=== PATIENT | female | born 1965 | race Caucasian/White ===

== ENCOUNTER → 2016-12-19 | Outpatient (CLI) | payer BC ==
[~2016-12-19] MED LIST: FEXO5TAB2 PO; GLIM1TAB2 PO; LEVO1TAB PO; LOSA100T26 PO; METF1000 PO; SIMV10TA2 PO
[2016-12-19 11:08] LABS: HEMATOCRIT 43.2 % (37-47); MEAN CELL VOLUME 86.1 fL (80-100); MEAN CORPUSCULAR HEMOGLOBIN 28.3 pg (25-34); MEAN CORPUSCULAR HGB CONC 32.9 g/dl (32-36); MEAN PLATELET VOLUME 10.2 fL (7.4-10.4); PLATELET COUNT 246 K/uL (130-400); RED BLOOD COUNT 5.02 M/uL (4.2-5.4); WHITE BLOOD COUNT 7.63 K/uL (4.8-10.8)
[2016-12-19 11:28] LABS: ESTIMATED AVERAGE GLUCOSE 166 mg/dl; HA1C FLAG Normal (Normal)
[2016-12-19 11:30] LABS: BLOOD UREA NITROGEN 12 mg/dl (7-18); BUN/CREATININE RATIO 15.7 (10-20); CALCIUM 9.2 mg/dl (8.5-10.1); CARBON DIOXIDE 28 mmol/L (21-32); CHLORIDE 103 mmol/L (98-107); CREATININE 0.76 mg/dl (0.60-1.20); GLUCOSE 165 mg/dl (70-99); SODIUM 139 mmol/L (136-145)
[2016-12-19 11:43] LABS: URINE PROTIEN/CREAT RATIO 0.1 (0-0.2); URINE TOTAL PROTEIN 27.7 mg/dl (0-11.9)
== END | disposition home or self-care (01) ==
LOC: C.LABBC 08:30
PROVIDERS: ATTEND Internal Medicine Geriatric Medicine
DX: E03.9 Hypothyroidism, unspecified (principal); E11.9 Type 2 diabetes mellitus without complications; E78.5 Hyperlipidemia, unspecified; G47.30 Sleep apnea, unspecified

== ENCOUNTER → 2017-04-11 | Outpatient (CLI) | payer BC ==
[~2017-04-11] MED LIST changes: -LOSA100T26 PO; +LOSA100T33 PO
--- NOTE | 2017-04-14 13:13 | MAMMOGRAPHY REPORT ---
BILATERAL DIGITAL SCREENING MAMMOGRAM TOMOSYNTHESIS WITH CAD: 04/11/2017 CLINICAL HISTORY: Routine screening. TECHNIQUE: Breast tomosynthesis in addition to standard 2D mammography was performed. Current study was also evaluated with a Computer Aided Detection (CAD) system. COMPARISON: Comparison is made to exams dated: 04/04/2016 mammogram, 03/31/2015 mammogram, 03/29/2014 ma mmogram, 12/31/2012 mammogram, 07/27/2012 mammogram, and 01/02/2012 mammogram - [facility]. BREAST COMPOSITION: There are scattered areas of fibroglandular density in both breasts. FINDINGS: No suspicious masses, calcifications, or areas of architectural distortion are noted in ei ther breast. There has been no significant interval change compared to prior exams. There are stable postsurgical changes from bilateral reduction mammoplasty. Bilateral asymmetries and scattered bila teral benign-appearing calcifications are stable. IMPRESSION: ACR BI-RADS CATEGORY 2: BENIGN There is no mammographic evidence of malignancy. A 1 year screening mammogram is recommended. The pa tient will receive written notification of the results. Approximately 10% of breast cancers are not detected with mammography. A negative mammographic report should not delay biopsy if a clinically suggestive mass is present. Nikki Carlisle M.D. ah/:04/11/2017 16:24:57 Outsole Handler: Nelida THAKUR)(M), [facility] letter sent: Normal 1/2 BI-RADS Code: ACR BI-RADS Category 2: Benign
== END | disposition home or self-care (01) ==
LOC: C.MAMM 08:00
PROVIDERS: ATTEND Internal Medicine Geriatric Medicine
DX: Z12.31 Encounter for screening mammogram for malignant neoplasm of breast (principal)

== ENCOUNTER → 2017-06-26 | Outpatient (CLI) | payer BC ==
[~2017-06-26] MED LIST changes: +LOSA100T26 PO; -LOSA100T33 PO
[2017-06-26 11:29] LABS: BASO % 0.3 %; BASO ABS # 0.02 K/uL (0-0.2); COMPLETE YES; EOS % 3.4 %; HEMATOCRIT 42.9 % (37-47); IG% 0.3 %; LYMPH ABS # 1.41 K/uL (1.2-3.4); MEAN CELL VOLUME 86.5 fL (80-100); MEAN CORPUSCULAR HEMOGLOBIN 28.4 pg (25-34); MEAN CORPUSCULAR HGB CONC 32.9 g/dl (32-36); MEAN PLATELET VOLUME 10.4 fL (7.4-10.4); MONO % 7.4 %; NEUT % 69.6 %; PLATELET COUNT 255 K/uL (130-400); RED BLOOD COUNT 4.96 M/uL (4.2-5.4); WHITE BLOOD COUNT 7.41 K/uL (4.8-10.8)
[2017-06-26 11:39] LABS: BLOOD UREA NITROGEN 14 mg/dl (7-18); BUN/CREATININE RATIO 18.6 (10-20); CALCIUM 9.2 mg/dl (8.5-10.1); CARBON DIOXIDE 29 mmol/L (21-32); CHLORIDE 106 mmol/L (98-107); CREATININE 0.77 mg/dl (0.60-1.20); GLUCOSE 138 mg/dl (70-99); POTASSIUM 4.1 mmol/L (3.5-5.1); SODIUM 138 mmol/L (136-145)
[2017-06-26 11:49] LABS: CHOLESTEROL 149 mg/dl (0-200); CHOLESTEROL/HDL RATIO 2.8; HDL CHOLESTEROL 54 mg/dl; LDL CHOLESTEROL CALCULATED 77 mg/dl; TRIGLYCERIDES 92 mg/dl (0-150); VERY LOW DENSITY LIPOPROT CALC 18 mg/dl
[2017-06-26 12:03] LABS: ESTIMATED AVERAGE GLUCOSE 157 mg/dl; HA1C FLAG Normal (Normal)
== END | disposition home or self-care (01) ==
LOC: C.LABBC 07:30
PROVIDERS: ATTEND Internal Medicine Geriatric Medicine
DX: E03.9 Hypothyroidism, unspecified (principal); E11.9 Type 2 diabetes mellitus without complications; E78.5 Hyperlipidemia, unspecified; I10 Essential (primary) hypertension; G47.30 Sleep apnea, unspecified

== ENCOUNTER → 2018-01-09 | Outpatient (CLI) | payer OTHER ==
[~2018-01-09] MED LIST changes: -LOSA100T26 PO; +LOSA100T33 PO
[2018-01-09 10:58] LABS: BASO % 0.2 %; BASO ABS # 0.02 K/uL (0-0.2); EOS % 2.6 %; EOS ABS # 0.22 K/uL (0-0.5); HEMATOCRIT 44.1 % (37-47); HEMOGLOBIN 14.1 g/dL (12.0-16.0); IG# 0.03 K/uL (0.00-0.02); LYMPH % 16.7 %; LYMPH ABS # 1.44 K/uL (1.2-3.4); MEAN CELL VOLUME 85.8 fL (80-100); MEAN CORPUSCULAR HEMOGLOBIN 27.4 pg (25-34); MEAN PLATELET VOLUME 10.6 fL (7.4-10.4); MONO % 8.5 %; MONO ABS # 0.73 K/uL (0.11-0.59); NEUT % 71.7 %; NEUT ABS # 6.18 K/uL (1.4-6.5); PLATELET COUNT 241 K/uL (130-400); RED CELL DISTRIBUTION WIDTH CV 14.6 % (11.5-14.5); RED CELL DISTRIBUTION WIDTH SD 45.8 fL (36.4-46.3); WHITE BLOOD COUNT 8.62 K/uL (4.8-10.8)
[2018-01-09 11:23] LABS: ALBUMIN 3.8 gm/dl (3.4-5.0); ALT/SGPT 26 U/L (12-78); AST/SGOT 11 U/L (15-37); BLOOD UREA NITROGEN 12 mg/dl (7-18); CALCIUM 9.2 mg/dl (8.5-10.1); CARBON DIOXIDE 29 mmol/L (21-32); GLUCOSE 149 mg/dl (70-99); POTASSIUM 3.1 mmol/L (3.5-5.1); SODIUM 133 mmol/L (136-145)
[2018-01-09 11:33] LABS: ALKALINE PHOSPHATASE 129 U/L (45-117); CHOLESTEROL 163 mg/dl (0-200); LDL CHOLESTEROL CALCULATED 81 mg/dl; TOTAL PROTEIN 7.6 gm/dl (6.4-8.2)
[2018-01-09 11:49] LABS: HEMOGLOBIN A1C 7.4 % (4.5-5.6)
== END | disposition home or self-care (01) ==
LOC: C.LABBC 08:14
PROVIDERS: ATTEND Internal Medicine Geriatric Medicine
DX: E11.9 Type 2 diabetes mellitus without complications (principal)

== ENCOUNTER 2021-04-11 08:17 | Observation (INO) ==
--- NOTE | 2021-03-08 13:10 | PAT Medication Instructions ---
Medication Instructions Date of Service March 08, 2021 Home Medications Medication Instructions Recorded simvastatin 20 mg tablet 20 mg PO DAILY #90 tab 05/24/20 telmisartan 80 mg tablet 80 mg PO DAILY #90 tab 06/05/20 glimepiride 2 mg tablet 2 mg PO QAM #90 tab 06/06/20 metformin 500 mg tablet,extended 2,000 mg PO DAILY #360 tab 06/06/20 release 24 hr spironolactone 25 mg tablet 25 mg PO QAM #90 tab 06/06/20 zinc 50 mg tablet 50 mg PO DAILY #30 tab 07/13/20 empagliflozin 25 mg tablet 25 mg PO DAILY #90 tab 11/30/20 blood sugar diagnostic #100 ea 12/05/20 blood-glucose meter #1 ea 12/05/20 lancets 30 gauge #100 ea 12/05/20 levothyroxine 175 mcg tablet 175 mcg PO DAILY #90 tab 02/12/21 miscellaneous medical supply 1 ea .ROUTE .nightly #1 ea 02/22/21 simvastatin 20 mg tablet 20 mg PO DAILY telmisartan 80 mg tablet 80 mg PO DAILY glimepiride 2 mg tablet 2 mg PO QAM spironolactone 25 mg tablet PO QAM metformin 500 mg tablet,extended release 24 hr 2,000 mg PO DAILY zinc 50 mg tablet 50 mg PO DAILY empagliflozin 25 mg tablet 25 mg PO DAILY levothyroxine 175 mcg tablet 175 mcg PO DAILY diclofenac sodium 75 mg PO HS Continue as directed simvastatin 20 mg tablet 20 mg PO DAILY ASK your surgeon for instructions diclofenac sodium 75 mg PO HS DO NOT take the morning of surgery telmisartan 80 mg tablet 80 mg PO DAILY glimepiride 2 mg tablet 2 mg PO QAM metformin 500 mg tablet,extended release 24 hr 2,000 mg PO DAILY zinc 50 mg tablet 50 mg PO DAILY empagliflozin 25 mg tablet 25 mg PO DAILY spironolactone 25 mg tablet PO QAM Take morning of surgery With a small sip of water, OTHERWISE NOTHING TO EAT OR DRINK AFTER MIDNIGHT: levothyroxine 175 mcg tablet 175 mcg PO DAILY Other Notes If you have any questions please call us at [phone] or [phone] or [phone] or [phone]
--- NOTE | 2021-03-12 09:27 | Anesthesiology Consultation ---
Date of Service March 12, 2021 Assessment & Plan (1) Encounter for pre-operative examination: - COVID screening: Per assessment on 03/12: Travel screen negative, no known COVID-19 positive contacts or current COVID-19 related symptoms. Patient fully vaccinated. Surgeon arranging preop COVID testing. Awaiting results. - Check BSG AM DOS - PCP note (02/22/21): Reviewed 02/22 hgba1c of 8.4% > "notify pt that her A1c is 8.4%. this is a lot better [previously 9.1% on 11/2020 labs], but we do like it to be below 8% for surgery. my hunch is that with her exercise, better diet, and weight loss, her average blood sugar right now would be consistent with <8%, but we won't know until we retest A1c. If her knee surgery can wait another 3 months we can repeat her test (and obviously, keep up her good work!) if she feels she needs to do the surgery now, I think it's ok, but is a bit riskier (poor healing, postop infections, etc)." PCP aware that patient does not wish to wait 3 months for rechecking of hgba1c and wishes to proceed with knee surgery in near future. Increased diet/exercise recommendations given. Surgeon's office made aware of the above. Chart Review Chart Review: Acceptable Risk for Surgery and Patient seen in Pre Admission Testing Teaching & Discussion Pre-Anesthesia Teaching/Discussion Notes: Instructed NPO after midnight before surgery,except medications with 15 cc of water. Medication instructions provided according to the PAT guidelines. History Surgery Operation Date: 04/11/21 09:05 Proposed Procedures p Right Total Knee Arthroplasty - Jonathan Mejia MD Height/Weight Height: 5 ft 4 in Weight: 127.6 kg Allergies Allergy/AdvReac Type Severity Reaction Status Date / Time Bactrim Allergy Intermediate RASH Verified 08/09/14 13:20 erythromycin base Allergy Intermediate Rash Verified 03/12/21 09:26 sulfamethoxazole Allergy Intermediate Rash Verified 03/12/21 09:26 trimethoprim Allergy Intermediate Rash Verified 03/12/21 09:26 latex Allergy Mild Skin Verified 03/12/21 09:26 irritation lisinopril Allergy Unknown Unknown Verified 03/12/21 09:26 Medications Home Medications Medication Instructions Recorded Confirmed Last Taken simvastatin 20 mg tablet 20 mg PO DAILY #90 tab 05/24/20 03/05/21 Unknown telmisartan 80 mg tablet 80 mg PO DAILY #90 tab 06/05/20 03/05/21 Unknown glimepiride 2 mg tablet 2 mg PO QAM #90 tab 06/06/20 03/05/21 Unknown metformin 500 mg tablet,extended 2,000 mg PO DAILY #360 tab 06/06/20 03/05/21 Unknown release 24 hr spironolactone 25 mg tablet 25 mg PO QAM #90 tab 06/06/20 03/05/21 Unknown zinc 50 mg tablet 50 mg PO DAILY #30 tab 07/13/20 03/05/21 Unknown empagliflozin 25 mg tablet 25 mg PO DAILY #90 tab 11/30/20 03/05/21 Unknown blood sugar diagnostic #100 ea 12/05/20 02/22/21 Unknown blood-glucose meter #1 ea 12/05/20 02/22/21 Unknown lancets 30 gauge #100 ea 12/05/20 02/22/21 Unknown levothyroxine 175 mcg tablet 175 mcg PO DAILY #90 tab 02/12/21 03/05/21 Unknown miscellaneous medical supply 1 ea .ROUTE .nightly #1 ea 02/22/21 02/22/21 Unknown diclofenac sodium 75 mg PO HS 03/05/21 03/05/21 Unknown Past Medical History Medical History Diabetes mellitus, type II NIDDM GERD (gastroesophageal reflux disease) controlled Hyperlipidemia Hypertension Hypothyroidism Obstructive sleep apnea CPAP Osteoarthritis Exercise / Class Metabolic Activity III < 4 Walking/Shop/Light housework (Does one flight of stairs once/week (when doing laundry in basement) > no chest pain, mild SOB) Past Family History Family History Father Cholesteatoma Diabetes Mother Hypertension Breast cancer Grandfather (Paternal) Myocardial infarction Denies family history of Ovarian cancer Prostate cancer Colorectal cancer Past Surgical History Surgical History History of colonoscopy History of endometrial ablation S/P excision of ganglion cyst Right wrist Status post breast reduction [place] teeth removed Past Anesthesia History No Hx of Anesthesia Complications and No Family Hx of Anesthesia Complications (except mother (post-op nausea)) History of PONV No Hx of PONV and No Hx of Motion Sickness Social History Smoking Status: Never smoker Do You Dip or Chew Tobacco: No Hx Alcohol Use: No Hx Substance Use: No Review of Systems + Chronic post nasal drip (allergy related) when laying flat- no recent changes. Patient denies chest pain, shortness of breath, fever, chills, cough, wheezing, palpitations. Physical Exam Vital Signs VITALS BP 118/74 P 72 TEMP 98.0 SP02 97%RA RESP 16 PHYSICAL Full cervical extension range of motion. Full TMJ range of motion. TMD 4 finger breaths (difficult to palpate) Mallampati Score 3 Dentition: intact Lungs: clear throughout to auscultation Cardiac: regular rate and rhythm, no murmurs noted Spine: normal Carotid arteries: negative bruit Extremities: non-pitting lower extremity edema Short, thick neck Testing Laboratory Results 03/12/21 09:41 03/12/21 09:41 PT 9.8 Seconds (9.0-12.0) 03/12/21 09:41 INR 1.0 (0.9-1.1) 03/12/21 09:41 APTT 26.9 Seconds (21.0-31.0) 03/12/21 09:41 Blood Type A Positive 03/12/21 09:41 Antibody Screen NEGATIVE 03/12/21 09:41 Electrocardiogram Date: 06/05/20 SR with 75bpm. "Normal ECG." Chest X-Ray Date: 07/05/20 FINDINGS: Cardiac silhouette is enlarged. No pneumothorax, pleural effusion or overt pulmonary edema. Subsegmental lingular opacities. Degenerative changes of the shoulders and spine. Probable rotator cuff calcific tendinosis of the right shoulder. IMPRESSION: Cardiomegaly without overt pulmonary edema. Subsegmental lingular opacities suggest probable atelectasis. Stress Test Date: 06/30/20 Type: DSE Normal dobutamine echo without evidence of inducible ischemia. Stage I diastolic dysfunction. Mild concentric LVH. EF 60%. No significant valvular disease.
[2021-03-12 10:09] LABS: Basophils # (auto) 0.02 K/uL (0-0.2); Basophils % (auto) 0.3 %; Eosinophils # (auto) 0.23 K/uL (0-0.5); Eosinophils % (auto) 3.1 %; Hemoglobin 14.1 g/dL (12.0-16.0); Immature Granulocytes # (auto) 0.02 K/uL (0.00-0.02); Immature Granulocytes % (auto) 0.3 %; Mean Corpuscular Hemoglobin 28.3 pg (25-34); Mean Corpuscular Volume 88.4 fL (80-100); Mean Platelet Volume 10.4 fL (7.4-10.4); Monocytes % (auto) 5.3 %; Neutrophils # (auto) 5.65 K/uL (1.4-6.5); Platelet Count 289 K/uL (130-400); RDW Coefficient of Variation 14.6 % (11.5-14.5); RDW Standard Deviation 47.2 fL (36.4-46.3); Red Blood Count 4.98 M/uL (4.2-5.4); White Blood Count 7.52 K/uL (4.8-10.8)
[2021-03-12 10:23] LABS: Partial Thromboplastin Time 26.9 Seconds (21.0-31.0); Prothrombin Time 9.8 Seconds (9.0-12.0)
[2021-03-12 13:03] LABS: BUN Creatinine Ratio 15.7 (10-20); Creatinine Clr Calc Pharmacy 83.2 ml/min; Est GFR (African American) 72.9; Est GFR (Non-African American) 62.9; Potassium 4.3 mmol/L (3.5-5.1)
--- NOTE | 2021-04-07 11:24 | History and Physical Report ---
DATE OF ADMISSION: 04/11/2021 CHIEF COMPLAINT: Bilateral knee pain and discomfort, right side greater than left. HISTORY OF PRESENT ILLNESS: The patient is a 55-year-old female who I have been treating for the past several years for bilateral knee DJD. She continues to be limited by her knee pain. The shots have become less successful over time. The right knee is worse than the left. She describes global pain. The knee hurts all the time. Gets worse as the day goes on. She limps more as the day goes on. She has nighttime pain. She now would like to consider surgery. PAST MEDICAL HISTORY: Significant for: 1. Hypertension. 2. Type 2 diabetes. 3. COPD. 4. Hypothyroidism. 5. Elevated cholesterol. 6. Obesity, BMI of 48. PAST SURGICAL HISTORY: Include: 1. Breast reduction. 2. Removal of cysts from her wrist. ALLERGIES: BACTRIM AND LISINOPRIL. CURRENT MEDICINES: Include: 1. Jardiance 25 mg a day. 2. Glimepiride 2 mg. 3. Levothyroxine 175 mcg a day. 4. Metformin 2000 mg once a day. 5. Simvastatin 20 mg. 6. Spironolactone 25 mg. 7. Telmisartan 80 mg a day. 8. Zinc 50 mg a day. SOCIAL HISTORY: A 55-year-old female. She is . Lives alone. Does not smoke. No alcohol intake. FAMILY HISTORY: Noncontributory. REVIEW OF SYSTEMS: Significant for diabetes. No chest pain or shortness of breath. No history of DVT or PE. No known bleeding problems. PHYSICAL EXAMINATION GENERAL: Shows a pleasant, middle-aged female. Looks to be in reasonably good health. HEENT: Benign. NECK: Supple, no lymphadenopathy. LUNGS: Clear to auscultation. HEART: Has a regular rate and rhythm. ABDOMEN: Soft, nontender, nondistended. EXTREMITIES: Grossly neurovascularly intact except as follows. Examination of both knees reveals the patient walks with a bit of waddling gait. Examination of the right knee reveals slight varus alignment. Moderate soft tissue envelope. Small knee effusion. Fairly mild stasis changes distally. Range of motion is near full extension to 120 degrees of flexion. No pain with hip motion. There is no knee instability on exam. Examination of the left knee reveals slight varus alignment. Minimal knee effusion. Slight stasis changes. Range of motion 0-125. No instability. X-RAYS: X-rays of both knees reveal advanced bilateral knee DJD. The right side is a bit worse than the left. She has complete loss of medial joint space. She has subchondral sclerosis. She has got some lateral compartment osteophytes as well. Left knee is a similar, but less severe. ASSESSMENT: A 55-year-old white female with multiple medical comorbidities including obesity, elevated cholesterol, hypertension, poorly controlled diabetes with advanced bilateral knee degenerative joint disease, right side more symptomatic than the left. She would like to consider surgery. PLAN: We will take her to the operating room and do right total knee replacement. The risks and benefits of this procedure were explained to the patient including but not limited to DVT, PE, , infection, neurological injury, vascular injury, bleeding problem, pain, limited range of motion, stiffness, failure to relieve symptoms, incomplete relief of symptoms, need for further surgery in the future, fracture, leg length inequality, nerve palsy, etc. The patient understands and desires to proceed. Informed consent was obtained. We did talk to her about holding her metformin in the morning of surgery. We use sliding scale coverage in the hospital. She is hoping to use [facility] home health upon discharge. She does live by herself. We will see how she gets along in the hospital.
[~2021-04-11 08:17] MED LIST changes: +ACETAMINOPHEN 500 MG TAB PO SCH; +BUPIVACAINE 0.25% 30 ML VIAL ONE; +BUPIVACAINE 0.5 % 5 MG/1 ML PF 10ML VIAL ONE; +BUPIVACAINE LIPOSOME/PF 266 MG, BUPIVACAINE/EPINEPHRINE 50 ML, SODIUM CHLORIDE 0.9% 30 ... INFIL SCH; +DEXAMETHASONE SOD INJ 4 MG/ML VIAL ONE; +EPINEPHrine INJ 1 MG/ML AMP ONE; -FEXO5TAB2 PO; -GLIM1TAB2 PO; -LEVO1TAB PO; -LOSA100T33 PO; +LR 500ML BOLUS, THEN 15ML/HR IV SCH; +LR 60ML/HR IV SCH; -METF1000 PO; -SIMV10TA2 PO; +Scopolamine 1 MG TDSY TD SCH; +TRANEXAMIC ACID 1,000 MG **IV Intra-op IV SCH
--- NOTE | 2021-04-11 08:54 | History & Physical Bridge Note ---
Date of Service April 11, 2021 History & Physical Bridge Note I have examined the patient, reviewed the History & Physical and in the interval since the performance of the History & Physical I have noted the following changes of clinical significance: no changes noted
[2021-04-11] MEDS ORDERED: TRANEXAMIC ACID / 0.7% NACL 1000MG/100ML BAG IV ONE (09:18)
[2021-04-11] MEDS ORDERED: ceFAZolin 2,000 MG/15 ML IV PUSH IV ONE (09:18)
[2021-04-11] MEDS ORDERED: SCOPOLAMINE 1 MG TDSY TD ONE (09:18)
[2021-04-11] MEDS ORDERED: MIDAZOLAM HCL 1 MG/ML 2ML VIAL ONE ×2 (09:37→11:49)
[2021-04-11] MEDS ORDERED: fentaNYL citrate 100 MCG/2 ML VIAL ONE (09:37)
[2021-04-11] MEDS ORDERED: BUPIVACAINE LIPOSOME 1.3% 266 MG/20 ML VIAL ONE (11:01)
[2021-04-11] MEDS ORDERED: SODIUM CHLORIDE 0.9% PF 50 ML VIAL ONE (11:01)
[2021-04-11] MEDS ORDERED: BUPIVACAINE 0.25% 30 ML VIAL ONE (11:02)
[2021-04-11] MEDS ORDERED: EPINEPHrine INJ 1 MG/ML AMP ONE (11:02)
[2021-04-11] MEDS ORDERED: fentaNYL citrate 100 MCG/2 ML VIAL IV PRN (12:06)
[2021-04-11] MEDS ORDERED: ONDANSETRON INJ 2 MG/ML 2 ML VIAL IV PRN ×2 (12:06→14:24)
[2021-04-11] MEDS ORDERED: ePHEDrine sulfate 50 MG/ML AMP IV PRN (12:06)
[2021-04-11] MEDS ORDERED: ATROPINE SULFATE 0.1 MG/ML 10ML SYR IV PRN (12:06)
[2021-04-11] MEDS ORDERED: PROPOFOL IV EMULSION 10 MG/ML 20 ML VIAL IV ONE (12:16)
[2021-04-11] MEDS ORDERED: LIDOCAINE 2% 2 ML VIAL/AMP(20MG/ML) INFIL ONE (12:16)
[2021-04-11] MEDS ORDERED: ONDANSETRON INJ 2 MG/ML 2 ML VIAL ONE (12:16)
[2021-04-11] MEDS ORDERED: ePHEDrine sulfate 50 MG/ML AMP ONE (12:16)
[2021-04-11] MEDS ORDERED: DEXAMETHASONE SOD INJ 4 MG/ML VIAL ONE (12:16)
--- NOTE | 2021-04-11 13:31 | Operative Report ---
Post Operative Report Pre & Post Diagnosis Operation Date: 04/11/21 10:40 Pre-Op Diagnosis: Right Knee Advanced Degenerative Joint Disease Post-Op Diagnosis: Right Knee Advanced Degenerative Joint Disease I identified the patient and participated in the time-out.: Yes Procedure Operation Date: 04/11/21 10:40 Actual Procedures p Right Total Knee Arthroplasty(Right) - Jonathan Mejia MD Surgeon Jonathan Mejia MD [employer] [place] Estimated Blood Loss 50 Findings Consistent with Post-Op Diagnosis Operative findings were advanced right knee DJD. She had fairly extensive grade 4 [id number] disease in the medial compartment. She had some focal grade 4 changes of the lateral femoral condyle with a size about the diameter of a dime in the central aspect. Moderate-sized joint effusion. Large soft tissue envelope. Fluids 1800 cc Specimens Right knee sent for pathology. Anesthesia Type Spinal MAC Complications none Disposition Accompanied Patient To Recovery: No Disposition: Recovery Room Indications The patient is a 55-year-old female is had a long history of bilateral knee pain discomfort right side greater than left patient been treated for arthritis of her knees over the years which became less successful over time. Became more debilitated by her disease. X-rays show advanced medial compartment arthritis. She elected proceed with surgical treatment. Description of Procedure Operative implants consist of: 1 Biomet Vanguard size 62.5 right posterior stabilized femoral component. 2. Biomet size 67 tibial tray. 3. 10 mm posterior stabilized polyethylene insert. 4. 31 x 8 all polypatella. The patient was taken to the operating, identified, and placed on the operating table supine position but all contact areas were properly padded. IV antibiotics 5 by anesthesia team. A spinal anesthetic and abductor canal block had provided in the holding area. Graves catheter was placed in sterile fashion. Right thigh turn was then placed in the right lower extremities and prepped draped in usual sterile fashion. The right leg was elevated exsanguinated with use of an Esmarch and turns placed at 3 and 50 mmHg. An anterior approach to the right knee was then performed through longitudinal incision centered over the patella. Sharp dissection was got through subcutaneous tissue down to the extensor mechanism. A medial parapatellar arthrotomy incision was made. Some subperiosteal dissection was carried out medially. The fat pad was resected from each patella tendon. Lateral patellofemoral ligament was released. Patella subluxated laterally and the knee was flexed. The osteophytes were taken off distal femur. The ACL and PCL were then released from the distal femur and the tibia subluxated anteriorly. The external tibial alignment jig was then placed in the interface the tibia and adjusted 14 mm medially. Proximal tibial cut was made remove about 3 mm of bone from the most deficient aspect medial side. The tibia size a size 67. Attention drawn the femur. The distal femur examined the sharp drill. Intramedullary canal was suction. A right 5 degree valgus cutting guide was placed. The distal femoral cutting block was pinned in place. Distal femoral cut was made to take an additional 3 mm of bone off distal femur. The femur was then sized to a size 62.5. The AP cutting block was pinned parallel to the epicondylar axis which was 4 degrees of external rotation. The anterior cut, anterior chamfer, posterior cut, posterior chamfer cuts were then made. Box cutting guide was placed in just slight lateral and the box cut was made. The knee was flexed. The remnants of the medial and lateral menisci were excised. The osteophytes were taken off the posterior aspect of femur. A trial femoral component was placed. The tibial tray was pinned in maximum external rotation and the drill and stem punch were used to create the defect in the proximal tibia for the tibial tray. Knee was then trialed with a 10 mm insert fit most appropriately. Attention drawn the patella. Patella was cleaned of all soft tissues. Patella thickness measured 20 mm in thickness was cut down to 13. Was sized to a size 31 patella. Lug holes were drilled for 31 patella. The lateral osteophyte is moved. Patella button was p laced. Knee was taken through range of motion and the patella tracked nicely with no thumbs test. Attention drawn to placing permanent components. All trial components were removed. Bone plug was placed in the distal femur limit blood loss. A double batch [place] G cement was mixed. Biomet Vanguard size 62.5 right posterior stabilized femoral component, size 67 tibial tray, a 10 mm posterior stabilized polyethylene insert, and a 31 x 8 all polypatella then cemented in place. Knee was brought out into full extension until cement hardened. Final cement check was then performed. Pericapsular tissues were injected with total of 100 cc of combination of 20 cc of Exparel, 30 cc normal saline, 50 cc of quarter percent Marcaine with epinephrine. Patient did receive 1 g tranexamic acid per the tourniquet was then let down for final turn time 58 minutes. Hemostasis assured use electrocautery. The wound was once again irrigated. Extensor mechanism then closed with combination 1 PDS suture #1 Vicryl suture in [id number] fashion. Extensor mechanism checked found to be intact. Subcutaneous tissue was then closed with 2 Dexon suture in a buried interrupted fashion skin was closed skin travis. Leg was then cleaned and dried and sterile dressing was Xeroform, 4 x 4's, sterile cast padding, Joey bandage were applied. Patient then transferred to the recovery room in stable c ondition. Patient tolerated procedure well and there were no complications. Morris Wilkes, my physician transportation assistant, was present for the entire procedure. His assistance was essential and required for appropriate patient positioning, prepping and draping, surgical exposure, performing the technical details of the operation, placement the implants, closure of the wound, and placement of the sterile bandage. I attest to the content of the Intraoperative Record and any orders documented therein. Any exceptions are noted below.
--- NOTE | 2021-04-11 13:50 | XRay Report ---
XR knee RT 1 or 2V routine CLINICAL HISTORY: Surgical Post Op COMPARISON: None. DISCUSSION: There are postsurgical changes of a total right knee arthroplasty and patellar resurfacin g. There is gas present within soft tissues consistent with recent surgery. There are overlying skin travis. The femoral and tibial components appear well seated. IMPRESSION: Postsurgical changes of a total right knee arthroplasty. ACT 112: Negative or not required by law. Electronically signed by: Naresh Pedroza M.D. 04/11/2021 1:48 PM
--- NOTE | 2021-04-11 14:01 | Anesthesiology Progress Note ---
Date of Service April 11, 2021 Anesthesia Post Procedure Vital Signs Vital Signs: Temp Pulse Pulse Resp BP BP Pulse Ox 04/11/21 13:55 69 17 115/52 L 98 04/11/21 13:45 68 17 118/51 L 99 04/11/21 13:35 75 20 111/57 L 99 04/11/21 13:26 36.7 C 80 23 116/58 L 99 04/11/21 08:57 36.8 C 79 18 141/74 H 95 Pain Intensity Right Knee: Pain Intensity: 5 Transfer of Care Handoff Completed per policy Notes Mental Status: alert / awake / arousable Patient Amnestic to Procedure: Yes Nausea / Vomiting: adequately controlled Pain: adequately controlled Airway Patency, RR, SpO2: stable & adequate BP & HR: stable & adequate Hydration State: stable & adequate Neuraxial Anesthesia: was administered and sensory block is resolving Anesthetic Complications: no major complications apparent and Pt Satisfied with anesthetic care
[2021-04-11] MEDS ORDERED: HYDROmorphone INJ 0.5 MG/0.5 ML SYR IV PRN (14:24)
[2021-04-11] MEDS ORDERED: GLUCOSE 40% GEL 15 GM TUBE PO PRN (14:24)
[2021-04-11] MEDS ORDERED: bisacodyL 10 MG SUPP PR PRN (14:24)
[2021-04-11] MEDS ORDERED: CARBOHYDRATES FOR HYPOGLYCEMIA PO PRN (14:24)
[2021-04-11] MEDS ORDERED: MAGNESIUM HYDROXIDE SUSP 30 ML UDC PO PRN (14:24)
[2021-04-11] MEDS ORDERED: ALUMINUM/MAGNESIUM SUSP 30 ML UDC PO PRN (14:24)
[2021-04-11] MEDS ORDERED: GLUCOSE 10 TABS/TUBE PO PRN (14:24)
[2021-04-11] MEDS ORDERED: NON-FORMULARY MEDICATION (Cpap Supplies misc) SCH (14:24)
[2021-04-11] MEDS ORDERED: diphenhydrAMINE Capsule 25 MG CAP PO PRN (14:24)
[2021-04-11] MEDS ORDERED: GLUCAGON FOR INJ 1 MG VIAL SQ PRN (14:24)
[2021-04-11] MEDS ORDERED: METOCLOPRAMIDE HCL INJ 5 MG/ML 2 ML VIAL IV PRN (14:24)
[2021-04-11] MEDS ORDERED: DEXTROSE 50% 50 ML SYRINGE IV PRN (14:24)
[2021-04-11] MEDS ORDERED: NALOXONE HCL 0.4 MG/1 ML VIAL/CARP IV PRN (14:24)
[2021-04-11] MEDS ORDERED: PHARMACY GLYCEMIC MGMT CONSULT SCH (14:44)
--- NOTE | 2021-04-11 15:05 | Pharmacy Report ---
Pharmacy Glycemic Short Note 2 - Date of Service April 11, 2021 - Glycemic Short BSG Results (Last 24 hours): 04/11/21 04/11/21 04/11/21 08:34 11:24 13:34 POC Glucose 175 H 134 H 143 H OUTPATIENT ANTIDIABETIC REGIMEN: * Glimepiride 2mg PO Q AM * Metformin ER 2000mg daily * Empagliflozin 25mg daily * A1c = 8.4% 02/22/21 ASSESSMENT: * Type 2 diabetic admitted for R TKA * Patient returned from the OR this afternoon, BSGs today have ranged 130s-170s. He did receive 4mg IV dexamethasone russell-op. * Will hold PO anti-hyperglycemic meds and begin basal/bolus regimen. Will utilize NPH for basal needs with STAT dose given now to address potential hyperglycemia post-op following meals. Will scale NPH at bedtime. * Novolog doses will be based on weight and "moderate/severe" stress level initially. PLAN FOR INPATIENT GLYCEMIC CONTROL: * Hold outpatient oral diabetes medications * Basal insulin * NPH 30 units SQ x 1 now. Then 10 units this evening if BSG greater than 180 * Bolus insulin * NovoLog per scale ACHS and at 0200 tonight * Goal Range: Low 110 mg/dL - High 140 mg/dL * Correction Factor: 18 mg/dL/unit * Nutritional / Prandial insulin per carb ratio of 1 unit per 6 grams CHO consumed PLAN FOR DISCHARGE: * A1c of 8.4% is above goal. If patient is agreeable, addition of basal insulin on discharge may be an option to improve glycemic control. If basal insulin is added, would recommend discontinuation of glimepiride.
[2021-04-11] MEDS ORDERED: INSULIN HUMAN NPH SC STA (15:10)
[2021-04-11] MEDS: SODIUM CHLORIDE 0.9% 1000ML 1,000 ML IV SCH ×2 (15:57→21:25)
[2021-04-11] MEDS: oxyCODONE HCL IR 5 MG TAB (IMMEDIATE RELEASE) PO PRN ×2 (15:57→23:46)
[2021-04-11] MEDS: KETOROLAC 30 MG/ML VIAL IV SCH ×2 (16:03→21:06)
[2021-04-11] MEDS: ACETAMINOPHEN 500 MG TAB PO SCH ×2 (16:03→21:11)
[2021-04-11] MEDS: Scopolamine CHECK PATCH PLACEMENT SCH ×2 (16:13→23:24)
[2021-04-11] MEDS: ASCORBIC ACID 500 MG TAB PO SCH (17:26)
[2021-04-11] MEDS: INSULIN ASPART 100 UNITS/ML 3 ML PEN SC SCH ×2 (17:50→21:15)
[2021-04-11] MEDS ORDERED: TRANEXAMIC ACID / 0.7% NACL 1,000 MG/100 ML BAG IV SCH (19:22)
[2021-04-11] MEDS: ceFAZolin 2000MG 2,000 MG/15 ML SYR IV SCH (19:34)
[2021-04-11] MEDS ORDERED: INSULIN HUMAN NPH SC ONE (21:00)
[2021-04-11] MEDS: ASPIRIN 81 MG ECTAB PO SCH (21:07)
[2021-04-11] MEDS: SENNA 8.6 MG TAB PO SCH (21:08)
[2021-04-11] MEDS: TAPENTADOL HCL ER 50 MG TABCR PO SCH (21:09)
[2021-04-11] MEDS: DOCUSATE SODIUM 100 MG CAP PO SCH (21:11)
[2021-04-12] MEDS: KETOROLAC 30 MG/ML VIAL IV SCH ×4 (02:00→19:38)
[2021-04-12] MEDS ORDERED: INSULIN ASPART 100 UNITS/ML 3 ML PEN SC ONE (02:00)
[2021-04-12] MEDS: ceFAZolin 2000MG 2,000 MG/15 ML SYR IV SCH (04:24)
[2021-04-12] MEDS: LEVOTHYROXINE SODIUM 175 MCG TABLET PO SCH (05:52)
[2021-04-12] MEDS: ACETAMINOPHEN 500 MG TAB PO SCH ×3 (05:53→20:58)
[2021-04-12 06:21] LABS: Hematocrit (blood only) 38.9 % (37-47); Hemoglobin 12.3 g/dL (12.0-16.0); Mean Corpuscular Hemoglobin 27.4 pg (25-34); Mean Corpuscular Hgb Conc 31.6 g/dL (32-36); Mean Corpuscular Volume 86.6 fL (80-100); Mean Platelet Volume 9.7 fL (7.4-10.4); Platelet Count 254 K/uL (130-400); RDW Coefficient of Variation 14.8 % (11.5-14.5); RDW Standard Deviation 47.3 fL (36.4-46.3); Red Blood Count 4.49 M/uL (4.2-5.4); White Blood Count 12.72 K/uL (4.8-10.8)
[2021-04-12 06:53] LABS: Calcium 8.9 mg/dl (8.5-10.1); Est GFR (African American) 88.8 ml/min; Est GFR (Non-African American) 76.6 ml/min; Potassium 4.3 mmol/L (3.5-5.1)
[2021-04-12] MEDS: ASCORBIC ACID 500 MG TAB PO SCH ×2 (08:03→18:02)
[2021-04-12] MEDS: MULTIVITAMIN TAB PO SCH (08:03)
[2021-04-12] MEDS: TELMISARTAN 40 MG TAB PO SCH (08:03)
[2021-04-12] MEDS: SPIRONOLACTONE 25 MG TAB PO SCH (08:03)
[2021-04-12] MEDS: SIMVASTATIN 20 MG TAB PO SCH (08:03)
[2021-04-12] MEDS: ASPIRIN 81 MG ECTAB PO SCH ×2 (08:03→20:09)
[2021-04-12] MEDS: Scopolamine CHECK PATCH PLACEMENT SCH ×3 (08:04→23:08)
[2021-04-12] MEDS: TAPENTADOL HCL ER 50 MG TABCR PO SCH ×2 (08:04→20:09)
[2021-04-12] MEDS: metFORMIN HCL ER 500 MG TABCR PO SCH (08:07)
[2021-04-12] MEDS: DOCUSATE SODIUM 100 MG CAP PO SCH ×2 (08:07→20:11)
--- NOTE | 2021-04-12 08:19 | Progress Notes ---
DATE: 04/12/2021 SUBJECTIVE: A 55-year-old white female postop day 1 from a right knee replacement. She is doing pretty well. Had a pretty good night. The pain has been controlled. No chest pain or shortness of breath. Not feeling dizzy or lightheaded. OBJECTIVE: VITAL SIGNS: Temperature is 36.5. Vital signs stable. GENERAL: Shows a pleasant, middle-aged female. She is lying in bed and looks quite comfortable. LUNGS: Clear to auscultation. HEART: Has a regular rate and rhythm. ABDOMEN: Soft, nontender, nondistended. EXTREMITIES: Grossly neurovascularly intact except as follows: Examination of the right leg reveals the leg to be well aligned. Dressing is clean, dry and intact. She can dorsiflex and plantarflex her foot appropriately. She is neurologically intact. LABORATORY DATA: Hemoglobin 12.3. Hematocrit 38.9. Electrolytes are stable. ASSESSMENT: A 55-year-old white female postop day 1 from right knee replacement, doing pretty well. Pain has been controlled. She is neurologically intact. PLAN: 1. DVT prophylaxis including thigh-high TEDs, SCDs, and aspirin twice a day. 2. PT/OT. Weight bear as tolerated. Right total knee protocol. 3. Pain control, doing okay with current pain regimen. 4. Disposition: Plan to discharge to home with some home health once adequately recovered and medically stable. We will see how therapy goes today and see how her pain is controlled.
[2021-04-12] MEDS: INSULIN ASPART 100 UNITS/ML 3 ML PEN SC SCH ×4 (08:49→20:56)
[2021-04-12] MEDS ORDERED: GLIMEPIRIDE 2 MG TAB PO SCH (09:00)
[2021-04-12] MEDS ORDERED: LANTUS PER UNIT CHARGE SQ ONE (12:30)
--- NOTE | 2021-04-12 14:25 | Pharmacy Report ---
Pharmacy Glycemic Short Note 2 - Date of Service April 12, 2021 - Glycemic Short BSG Results (Last 24 hours): 04/11/21 04/11/21 04/11/21 14:59 17:04 20:23 Glucose POC Glucose 170 H 205 H 262 H 04/12/21 04/12/21 04/12/21 01:53 05:49 08:03 Glucose 160 H POC Glucose 174 H 152 H 04/12/21 11:58 Glucose POC Glucose 202 H OUTPATIENT ANTIDIABETIC REGIMEN: * Glimepiride 2mg PO Q AM * Metformin ER 2000mg daily * Empagliflozin 25mg daily * A1c = 8.4% 02/22/21 ASSESSMENT: 04/12: * BSGs elevated postoperatively yesterday at 205, 262, and 174 mg/dL * Likely due to patient refusal of initial NPH and initial Novolog orders * Fasting BSG of 152 mg/dL this morning * Will give 15 units of Lantus today ~0.2 unit/kg of adjusted body weight * Likely discharge today or tomorrow 04/11: * Type 2 diabetic admitted for R TKA * Patient returned from the OR this afternoon, BSGs today have ranged 130s-170s. He did receive 4mg IV dexamethasone russell-op. * Will hold PO anti-hyperglycemic meds and begin basal/bolus regimen. Will utilize NPH for basal needs with STAT dose given now to address potential hyperglycemia post-op following meals. Will scale NPH at bedtime. * Novolog doses will be based on weight and "moderate/severe" stress level initially. PLAN FOR INPATIENT GLYCEMIC CONTROL: * Metformin XR 2000 mg PO daily * Will continue to hold glimepiride and empagliflozin * Basal insulin * Lantus 15 units SC daily * Bolus insulin - tighten carb ratio * NovoLog per scale ACHS and at 0200 tonight * Goal Range: Low 110 mg/dL - High 140 mg/dL * Correction Factor: 18 mg/dL/unit * Nutritional / Prandial insulin per carb ratio of 1 unit per 5 grams CHO consumed PLAN FOR DISCHARGE: * A1c of 8.4% is above goal. If patient is agreeable, addition of basal insulin on discharge may be an option to improve glycemic control. If basal insulin is added, would recommend discontinuation of glimepiride.
[2021-04-12] MEDS: SENNA 8.6 MG TAB PO SCH (20:09)
[2021-04-13] MEDS: KETOROLAC 30 MG/ML VIAL IV SCH ×2 (01:39→08:13)
[2021-04-13] MEDS: LEVOTHYROXINE SODIUM 175 MCG TABLET PO SCH (05:51)
[2021-04-13] MEDS: ACETAMINOPHEN 500 MG TAB PO SCH (05:52)
[2021-04-13] MEDS: ASCORBIC ACID 500 MG TAB PO SCH (07:55)
[2021-04-13] MEDS: Scopolamine CHECK PATCH PLACEMENT SCH (07:55)
[2021-04-13] MEDS: metFORMIN HCL ER 500 MG TABCR PO SCH (07:56)
[2021-04-13] MEDS: ASPIRIN 81 MG ECTAB PO SCH (07:57)
[2021-04-13] MEDS: MULTIVITAMIN TAB PO SCH (07:58)
[2021-04-13] MEDS: SIMVASTATIN 20 MG TAB PO SCH (07:58)
[2021-04-13] MEDS: SPIRONOLACTONE 25 MG TAB PO SCH (07:58)
[2021-04-13] MEDS: TELMISARTAN 40 MG TAB PO SCH (07:59)
[2021-04-13] MEDS: TAPENTADOL HCL ER 50 MG TABCR PO SCH (08:13)
[2021-04-13] MEDS: DOCUSATE SODIUM 100 MG CAP PO SCH (08:13)
[2021-04-13] MEDS: INSULIN ASPART 100 UNITS/ML 3 ML PEN SC SCH (08:14)
[2021-04-13] MEDS ORDERED: LANTUS PER UNIT CHARGE SQ ONE (09:00)
--- NOTE | 2021-04-14 14:49 | Progress Notes ---
DATE: 04/13/2021 SUBJECTIVE: A 55-year-old white female postop day 2 from right knee replacement. She is doing pretty well, pretty good. Therapy went reasonably well. Pain is controlled. No chest pain or shortness of breath. Not feeling dizzy or lightheaded. OBJECTIVE: VITAL SIGNS: Temperature 36.8. Vital signs stable. GENERAL: Shows a pleasant, middle-aged female. She is sitting up in bed this morning and looks quite comfortable. EXTREMITIES: Examination of the right leg reveals the leg to be well aligned. Dressing is clean, dry and intact. She can dorsiflex and plantarflex her foot appropriately. She is neurologically intact. ASSESSMENT: A 55-year-old white female postop day 2 from right knee replacement, doing well. Pain is controlled. PLAN: 1. DVT prophylaxis including thigh-high TEDs, SCDs, and aspirin twice a day. 2. PT/OT. Weight bear as tolerated. Right total knee protocol. 3. Pain control, doing okay with current pain regimen. 4. Disposition: Plan to discharge to home with some home health. She is going to go stay at her parents' house. We will likely send her home after therapy today.
--- NOTE | 2021-04-17 06:35 | Discharge Summary ---
Date of Service April 17, 2021 Discharge Data Procedures Performed Operation Date: 04/11/21 10:40 Actual Procedures p Right Total Knee Arthroplasty(Right) - Jonathan Mejia MD Hospital Course (1) Status post total right knee replacement: 55 year old patient admitted on 04/11/21 and underwent total knee arthroplasty. She tolerated the procedure well and there were no complications. Transferred to the PACU post op and later to the orthopedic floor for further care. She was given ancef for antibiotic prophylaxis. She was also given NAREN stockings, SCDs, and aspirin for DVT prophylaxis. Hemoglobin, hematocrit, and vital signs were monitored during her hospital stay and remained stable. Did not require any blood transfusions. There were no complications during her hospital stay. By post op day #2 the patient was tolerating a regular diet, pain was reasonably controlled with oral pain medicine, and she was participating in physical therapy. On post op day #2 the patient was discharged home and set up with home health care. She was given printed discharge instructions including prescriptions for extra strength tylenol, aspirin, and oxycodone. Continue physical therapy, weight bearing as tolerated. Continue NAREN stockings. Follow up approximately 2 weeks post op or sooner if there are problems or concerns. Coding Level of Care Code None Diagnoses Status post total right knee replacement Z96.651
== END 2021-04-13 13:17 | disposition home health service (06) ==
LOC: 3E 08:17 → ASU 08:17

== ENCOUNTER 2023-04-08 05:17 | Observation (INO) ==
--- NOTE | 2023-03-12 13:30 | PAT Medication Instructions ---
Medication Instructions Date of Service March 12, 2023 Home Medications Medication Instructions Recorded zinc 50 mg tablet 50 mg PO DAILY #30 tabs 07/13/20 blood sugar diagnostic (OneTouch #100 ea 12/05/20 Verio test strips) blood-glucose meter (OneTouch #1 ea 12/05/20 Verio Flex Meter) lancets 30 gauge (OneTouch Delica #100 ea 12/05/20 Lancets) CPAP Supplies 1 ea .Route .nightly #1 ea 02/22/21 cyanocobalamin (vitamin B-12) 1,000 mcg PO DAILY #30 caps 09/12/21 1,000 mcg capsule metformin 500 mg tablet,extended 2,000 mg PO DAILY #360 tabs 09/30/22 release 24 hr simvastatin 20 mg tablet 20 mg PO DAILY #90 tabs 09/30/22 spironolactone 25 mg tablet 25 mg PO QAM #90 tabs 09/30/22 telmisartan 80 mg tablet 80 mg PO DAILY #90 tabs 09/30/22 levothyroxine 175 mcg tablet 175 mcg PO DAILY #90 tabs 11/22/22 fluconazole 150 mg tablet 150 mg PO Q3D 2 doses #2 tabs 12/19/22 (Diflucan) diclofenac sodium 75 mg 75 mg PO HS #90 tabs 12/31/22 tablet,delayed release empagliflozin 25 mg tablet 25 mg PO DAILY #90 tabs 02/17/23 (Jardiance) semaglutide 7 mg tablet 14 mg PO DAILY 30 days #60 tabs 03/03/23 Medication List: zinc 50 mg tablet 50 mg PO DAILY cyanocobalamin (vitamin B-12) 1,000 mcg capsule 1,000 mcg PO DAILY metformin 500 mg tablet,extended release 24 hr 2,000 mg PO DAILY simvastatin 20 mg tablet 20 mg PO DAILY spironolactone 25 mg tablet 25 mg PO QAM telmisartan 80 mg tablet 80 mg PO DAILY levothyroxine 175 mcg tablet 175 mcg PO DAILY fluconazole 150 mg tablet (Diflucan) 150 mg PO Q3D diclofenac sodium 75 mg tablet,delayed release 75 mg PO HS empagliflozin 25 mg tablet (Jardiance) 25 mg PO DAILY semaglutide 7 mg tablet 14 mg PO DAILY Continue as directed fluconazole 150 mg tablet (Diflucan) 150 mg PO Q3D ASK your surgeon for instructions diclofenac sodium 75 mg tablet,delayed release 75 mg PO HS DO NOT take the morning of surgery zinc 50 mg tablet 50 mg PO DAILY cyanocobalamin (vitamin B-12) 1,000 mcg capsule 1,000 mcg PO DAILY metformin 500 mg tablet,extended release 24 hr 2,000 mg PO DAILY spironolactone 25 mg tablet 25 mg PO QAM telmisartan 80 mg tablet 80 mg PO DAILY semaglutide 7 mg tablet 14 mg PO DAILY Take morning of surgery With a small sip of water, OTHERWISE NOTHING TO EAT OR DRINK AFTER MIDNIGHT: simvastatin 20 mg tablet 20 mg PO DAILY levothyroxine 175 mcg tablet 175 mcg PO DAILY Other Notes STOP 3 DAYS BEFORE SURGERY: empagliflozin 25 mg tablet (Jardiance) 25 mg PO DAILY If you have any questions please call us at [phone] or [phone] or [phone] or [phone]
--- NOTE | 2023-03-20 10:03 | Anesthesiology Consultation ---
Date of Service March 20, 2023 Assessment & Plan (1) Encounter for pre-operative examination: - check BSG am DOS. Outpatient joint assessment: Patient is currently scheduled for inpatient pathway. If re-evaluated pending system levels during current pandemic/surgeon requests outpatient pathway, patient is not recommended candidate for outpatient joint program from anesthesia standpoint. Chart Review Chart Review: Acceptable Risk for Surgery and Patient seen in Pre Admission Testing Teaching & Discussion Pre-Anesthesia Teaching/Discussion Notes: Instructed NPO after midnight before surgery, except medications with 15 cc of water. Medication instructions provided according to the PAT guidelines. History Surgery Operation Date: 04/08/23 07:00 Proposed Procedures p Left Total Knee Arthroplasty - Jonathan Mejia MD Height/Weight Height: 5 ft 3.75 in Weight: 108.409 kg Allergies Allergy/AdvReac Type Severity Reaction Status Date / Time Bactrim Allergy Intermediate RASH Verified 08/09/14 13:20 erythromycin base Allergy Intermediate Rash Verified 12/19/22 09:33 sulfamethoxazole Allergy Intermediate Rash Verified 12/19/22 09:33 trimethoprim Allergy Intermediate Rash Verified 12/19/22 09:33 latex Allergy Mild Skin Verified 12/19/22 09:33 irritation lisinopril Allergy Unknown Unknown Verified 12/19/22 09:33 Medications Home Medications Medication Instructions Recorded Confirmed Last Taken zinc 50 mg tablet 50 mg PO DAILY #30 tabs 07/13/20 03/12/23 04/10/21 08:30 blood sugar diagnostic (OneTouch #100 ea 12/05/20 12/19/22 Unknown Verio test strips) blood-glucose meter (OneTouch #1 ea 12/05/20 12/19/22 Unknown Verio Flex Meter) lancets 30 gauge (OneTouch Delica #100 ea 12/05/20 12/19/22 Unknown Lancets) CPAP Supplies 1 ea .Route .nightly #1 ea 02/22/21 03/12/23 Unknown cyanocobalamin (vitamin B-12) 1,000 mcg PO DAILY #30 caps 09/12/21 03/12/23 Unknown 1,000 mcg capsule metformin 500 mg tablet,extended 2,000 mg PO DAILY #360 tabs 09/30/22 03/12/23 Unknown release 24 hr simvastatin 20 mg tablet 20 mg PO DAILY #90 tabs 09/30/22 03/12/23 Unknown spironolactone 25 mg tablet 25 mg PO QAM #90 tabs 09/30/22 03/12/23 Unknown telmisartan 80 mg tablet 80 mg PO DAILY #90 tabs 09/30/22 03/12/23 Unknown levothyroxine 175 mcg tablet 175 mcg PO DAILY #90 tabs 11/22/22 03/12/23 Unknown fluconazole 150 mg tablet 150 mg PO Q3D 2 doses #2 tabs 12/19/22 03/12/23 Unknown (Diflucan) diclofenac sodium 75 mg 75 mg PO HS #90 tabs 12/31/22 03/12/23 Unknown tablet,delayed release empagliflozin 25 mg tablet 25 mg PO DAILY #90 tabs 02/17/23 03/12/23 Unknown (Jardiance) semaglutide 7 mg tablet 14 mg PO DAILY 30 days #60 tabs 03/03/23 03/12/23 Unknown Past Medical History Medical History (Updated 03/20/23 @ 10:07 by Bettye Morgan PA-C) Diabetes mellitus, type II NIDDM GERD (gastroesophageal reflux disease) controlled, stable per pt Hyperlipidemia Hypertension controlled, stable per pt Hypothyroidism Obstructive sleep apnea CPAP Patient denies h/o stroke, seizures, heart attack, heart failure, blood clots or blood transfusions. Exercise / Class Metabolic Activity II 4-5 Yardwork/Stairs/Walk up hill (denies chest discomfort or shortness of breath with 1 FOS) Past Family History Family History Father Cholesteatoma Diabetes Mother Hypertension Breast cancer Grandfather (Paternal) Myocardial infarction Denies family history of Ovarian cancer Prostate cancer Colorectal cancer Past Surgical History Surgical History (Updated 03/20/23 @ 13:26 by Bettye Morgan PA-C) History of colonoscopy 08/2014 repeat 10 years History of endometrial ablation S/P excision of ganglion cyst Right wrist Status post breast reduction Status post right knee replacement 04/11/21 SAB L4-L5 3 attempts + PNB. [place] teeth removed Past Anesthesia History No Hx of Anesthesia Complications and Other (mother-PONV) History of PONV No Hx of PONV and Hx of Motion Sickness Social History Smoking Status: Never smoker Do You Dip or Chew Tobacco: No Hx Alcohol Use: No Hx Substance Use: No substance use type: does not use Review of Systems Patient denies chest pain, shortness of breath, dyspnea on exertion, fever, chills, cough, wheezing, or palpitations. Physical Exam Vital Signs Vitals BP 136/81 P 69 TEMP 98.4 SP02 95% on RA RESP 17 Physical Full cervical extension range of motion without pain TMD 3.5 finger breadths Mallampati Score 3 Dentition: intact, denies chipped or loose teeth, caps/crowns, implants or bridges Lungs: normal respiratory effort. Good air movement, clear throughout to auscultation, no adventitious breath sounds Cardiac: regular rate and rhythm, no murmurs noted Carotid arteries: negative bruit bilat Lab Results Anesthesia Preop Results Results Anesthesia Widget: WBC 7.15 K/ul (4.8-10.8) 03/20/23 Hgb 14.7 g/dl (12.0-16.0) 03/20/23 Hct 45.0 % (37.0-47.0) 03/20/23 Plt 242 K/uL (130-400) 03/20/23 Na 139 mmol/L (136-145) 03/20/23 K 4.1 mmol/L (3.5-5.1) 03/20/23 Cl 104 mmol/L (98-107) 03/20/23 CO2 26 mmol/L (21-32) 03/20/23 BUN 15 mg/dl (6-23) 03/20/23 Creat 0.90 mg/dl (0.6-1.2) 03/20/23 Glucose Level 234 mg/dl (70-99(Fasting)) H 03/20/23 PT 10.0 Seconds (9.0-12.0) 03/20/23 PTT 27.9 Seconds (21.0-31.0) 03/20/23 INR 0.9 (0.9-1.1) 03/20/23 TSH 1.177 uIu/ml (0.300-4.500) 02/12/23 HA1c 10.0 % (4.5-5.6) H 03/20/23 Blood Type A Positive 03/20/23 Antibody Screen NEGATIVE 03/20/23 Testing Electrocardiogram Date: 03/20/23 NSR, rate 63 bpm Chest X-Ray Date: 03/20/23 Cardiac silhouette is enlarged. Eventration of the right hemidiaphragm. No pneumothorax, pleural effusion, airspace consolidation or pulmonary edema. Bones of the chest appear grossly intact. IMPRESSION: No acute process. Stress Test Date: 06/30/20 Dobutamine MPHR 87% Normal without evidence of inducible ischemia Mild cLVH Mild tricuspid regurgitation Stage I diastolic dysfunction COVID-19 Risk Screen Screening Information COVID-19 Screen Date: 03/20/23 Exposure 21 Days Family/Household +COVID Last 21 Days: No Exposure 10 Days Any COVID Exposure Last 10 Days: No Symptoms Last 10 Days Experienced COVID Sx Last 10 Days: No + COVID 0-90 Days COVID + in Last 0-90 Days: No
--- NOTE | 2023-04-03 08:17 | History and Physical Report ---
CHIEF COMPLAINT: Persistent left knee pain and discomfort. HISTORY OF PRESENT ILLNESS: A 57-year-old female, who presents now for surgical treatment of her lef t knee. She has got a long history of knee problems and had her right knee replaced about 2 years ag o. She has done well with this. She continues to be bothered by the left knee pain. She has been t hrough extensive conservative treatment including injections, which have become less successful overt marni. She describes global pain in her knee. It increases with weightbearing. She would like to hav e her knee fixed. We did recently check her A1c and it was 10.0. She has been contacted by diabetes management and wor andrew on improving this to decrease her surgical risk. PAST MEDICAL HISTORY: 1. Hypertension. 2. Elevated cholesterol. 3. Asthma. 4. Sleep apnea with CPAP machine. 5. Diabetes x10 years. 6. Hypothyroidism. 7. Gastroesophageal reflux disease. 8. Obesity with BMI of 42. PAST SURGICAL HISTORY: Includes: 1. Right knee replacement done on 04/11/2021. 2. Breast reduction. 3. Cyst removal from her wrist. ALLERGIES: BACTRIM AND LISINOPRIL. CURRENT MEDICATIONS: Include: 1. Jardiance. 2. Glimepiride. 3. Levothyroxine. 4. Metformin. 5. Simvastatin. 6. Spironolactone. 7. Telmisartan. 8. Zinc. SOCIAL HISTORY: A 57-year-old female. She is . Lives alone. Does not smoke. No alcohol i ntake. FAMILY HISTORY: Noncontributory. REVIEW OF SYSTEMS: Significant for fairly poorly-controlled diabetes in the past. She is working on getting this under better control. No chest pain or shortness of breath. No history of DVT or PE. PHYSICAL EXAMINATION: GENERAL: Physical exam shows a pleasant middle-aged female, who looks to be in reasonably good healt h. HEENT: Benign. NECK: Supple. No lymphadenopathy. LUNGS: Clear to auscultation. HEART: Regular rate and rhythm. ABDOMEN: Soft, nontender, and nondistended. EXTREMITIES: Grossly neurovascularly intact except as follows. Examination of the left knee reveals a slight varus alignment to her knee. Grcpsqwu-[id number]-wybtb soft ti ssue envelope. Range of motion is near full extension to 120 degrees of flexion. There is no pain w ith hip motion. Examination of the right knee reveals a well-healed incision. She has got anatomic alignment to her knee. Range of motion is 0 to 120. X-RAYS: X-rays of the left knee were reviewed. It shows advanced medial compartment arthritis. She has near complete loss of her joint space. Osteophytes primarily medially. ASSESSMENT: A 57-year-old white female 2 years out from a right knee replacement with multiple medic al comorbidities including asthma, sleep apnea, diabetes, hypothyroidism, gastroesophageal reflux dis ease, hypertension, elevated cholesterol, and obesity with advanced left knee degenerative joint dise ase. She has failed conservative measures. She would like to have her knee fixed. Happy with the r ight knee. Her blood glucoses have been fairly poorly controlled and she is working to improve those . PLAN: We will take her to the operating room and do a left total knee replacement. The risks and be nefits of this procedure were explained to the patient to include, but not limited to DVT, PE, , infection, neurological injury, vascular injury, bleeding problem, pain, limited range of motion, st iffness, failure to relieve her symptoms, incomplete relief of symptoms, need for further surgery in the future, etc. The patient understands and desires to proceed. Informed consent was obtained. As far as discharge plans, she is planning to be discharged to home. She does live by herself, but s he is going to move in with her parents in acute recovery and she is going to have some family assist in her care. Job ID: [id number]
[2023-04-08] MEDS ORDERED: Scopolamine 1 MG TDSY TD SCH (06:00)
[2023-04-08] MEDS ORDERED: METOCLOPRAMIDE HCL 10 MG TABLET PO SCH (06:00)
[2023-04-08] MEDS ORDERED: FAMOTIDINE 20 MG TAB PO SCH (06:00)
[2023-04-08] MEDS ORDERED: LR 500ML BOLUS, THEN 15ML/HR IV SCH (06:00)
[2023-04-08] MEDS ORDERED: LR 60ML/HR IV SCH (06:00)
[2023-04-08] MEDS ORDERED: ACETAMINOPHEN 500 MG TAB PO SCH (06:00)
[2023-04-08] MEDS ORDERED: BUPIVACAINE LIPOSOME/PF 266 MG, BUPIVACAINE/EPINEPHRINE 50 ML, SODIUM CHLORIDE 0.9% PF ... INFIL SCH (06:00)
[2023-04-08] MEDS ORDERED: CeleBREX 200 MG CAP PO SCH (06:00)
[2023-04-08] MEDS ORDERED: TRANEXAMIC ACID 1,000 MG **IV Intra-op IV SCH (06:00)
[2023-04-08] MEDS ORDERED: ceFAZolin 2000MG 2,000 MG/15 ML SYR IV SCH (06:00)
[2023-04-08] MEDS ORDERED: ROPIVACAINE 0.5% 5 MG/ML 30 ML VIAL ONE (06:20)
[2023-04-08] MEDS ORDERED: BUPIVACAINE 0.5 % 5 MG/1 ML PF 10ML VIAL ONE (06:20)
[2023-04-08] MEDS ORDERED: MIDAZOLAM HCL 1 MG/ML 2ML VIAL ONE (06:23)
[2023-04-08] MEDS ORDERED: fentaNYL citrate PF 100 MCG/2 ML VIAL ONE (06:24)
[2023-04-08] MEDS ORDERED: LIDOCAINE 2% 2 ML VIAL/AMP(20MG/ML) INFIL ONE (06:24)
[2023-04-08] MEDS ORDERED: PROPOFOL IV EMULSION 10 MG/ML 20 ML VIAL IV ONE (06:25)
[2023-04-08] MEDS ORDERED: ONDANSETRON INJ 2 MG/ML 2 ML VIAL ONE (06:27)
[2023-04-08] MEDS ORDERED: ePHEDrine sulfate 50 MG/ML AMP IV PRN (06:34)
[2023-04-08] MEDS ORDERED: ATROPINE SULFATE 0.1 MG/ML 10ML SYR IV PRN (06:34)
[2023-04-08] MEDS ORDERED: fentaNYL citrate PF 100 MCG/2 ML VIAL IV PRN (06:34)
[2023-04-08] MEDS ORDERED: ONDANSETRON INJ 2 MG/ML 2 ML VIAL IV PRN ×2 (06:34→10:10)
[2023-04-08] MEDS ORDERED: SODIUM CHLORIDE 0.9% PF 50 ML VIAL ONE (06:36)
[2023-04-08] MEDS ORDERED: BUPIVACAINE/EPINEPHRINE 0.25% 1:200,000 30 ML VIAL ONE (06:36)
--- NOTE | 2023-04-08 06:56 | History & Physical Bridge Note ---
Date of Service April 08, 2023 History & Physical Bridge Note I have examined the patient, reviewed the History & Physical and in the interval since the performance of the History & Physical I have noted the following changes of clinical significance: no changes noted
[2023-04-08] MEDS ORDERED: PHENYLEPHRINE HCL 10 MG/ML VIAL ONE (07:32)
[2023-04-08] MEDS: BUPIVACAINE LIPOSOME 1.3% 266 MG/20 ML VIAL ONE ×2 (07:54→07:56)
--- NOTE | 2023-04-08 08:51 | Operative Report ---
PG Post Operative Report Pre & Post Diagnosis Operation Date: 04/08/23 07:00 Pre-Op Diagnosis: Left Knee Degenerative Joint Disease Post-Op Diagnosis: Left Knee Degenerative Joint Disease I identified the patient and participated in the time-out.: Yes Procedure Operation Date: 04/08/23 07:00 Actual Procedures p Left Total Knee Arthroplasty(Left) - Jonathan Mejia MD Surgeon Jonathan Mejia MD Toe Puncher Morris Wilkes PA-C Estimated Blood Loss 50 Findings Consistent with Post-Op Diagnosis Operative findings revealed a large soft tissue envelope. She had a large knee joint effusion. She had grade 4 zqke-hk-bevt disease in all 3 compartments. Not much eburnation but full-thickness cartilage loss. The Specimens Left knee sent for pathology Anesthesia Type Spinal MAC Complications none Disposition Accompanied Patient To Recovery: No Indications Patient is a 57-year-old female with fairly brittle diabetes who said a long history of knee problems. She been through extensive conservative treatment o kirk the years which became less successful. She had a right knee replaced couple years ago and is done well with this. She continues to be limited by left knee pain discomfort. X-rays show advanced knee arthritis. She elected proceed with total knee arthroplasty. Description of Procedure Operative implants consist of: 1. Biomet Vanguard size 60 left posterior stabilized femoral component. 2. Biomet size 67 tibial tray. 3. 10 mm posterior stabilized polyethylene insert. 4. 31 x 8 all poly patella. The patient was taken the operating, identified, and placed on the operating table supine position protectors were properly padded. IV antibiotics tried by anesthesia team. A spinal anesthetic and abductor canal block had been divided holding area. Graves catheter was placed in sterile fashion. Left factor was then placed in the left lower extremities then prepped and draped in usual sterile fashion. The left leg was elevated exsanguinated with use of an Esmarch and the tourniquet was placed at 300 mmHg. An anterior approach left knee was then performed to longitudinal incision centered over the patella. Sharp dissection was carried through subcutaneous tissue down the extensor mechanism. A medial parapatellar arthrotomy incision was made. Some subperiosteal dissection was carried out medially. The fat pad was resected from Neath patella tendon. Lateral patellofemoral ligament was released. Patella subluxated laterally and the knee was flexed. The osteophytes taken off distal femur. The ACL and PCL released from the distal femur and the tibia subluxated anteriorly. The external tibial alignment jig was then placed in the interface the tibia and adjusted 14 mm medially. Proximal tibial cut was made remove about 2 to 3 mm of bone from the medial side. The tibia was sized to a size 67. We tried to maximize coverage due to large size size. Attention drawn the femur. The distal femur examined the sharp drop with intramedullary canal was suction. A left 5 degree valgus cutting guide was placed. This femoral cutting block was pinned in place. Distal femoral cut was made to take an additional 3 mm of bone off distal femur. The femur was then sized to a size 60. The AP cutting block was pinned parallel to the epicondylar axis which was 5 degrees of external rotation. Anterior cut, anterior chamfer, posterior cut, posterior chamfer cuts were made. The box cutting guide was placed in just slight lateral and the box cut was made. The knee was flexed. The remnants of the medial and lateral menisci were excised. The osteophytes taken off the posterior aspect the femur. A trial femoral component was placed. Tibial tray was pinned in maximum external rotation and the drill and stem punch were used to create defect in proximal tibia for the tibial tray. Knee was then trialed and the 10 mm insert fit most appropriately. Attention drawn the patella. The patella was cleaned of all soft tissues. Patella thickness measured 19 mm in thickness and was cut down to 12. Was sized to a size 31 patella. The lug holes were drilled for 31 patella. The lateral osteophytes removed. Patella button was placed. Knee was taken through range of motion patella tracked nicely with no thumbs test. Attention drawn to placing permanent components. All trial components were removed. Bone plug was placed in the distal femur limit blood loss. Double batch Palacos G cement was mixed. Biomet Image Stream Medicalguard size 60 left posterior stabilized femoral component, a size 67 tibial tray, a 10 mm posterior stabilized polyethylene insert, and a 31 x 8 all poly patella then cemented in place. Knee was brought out in full extension till cement hardened. Final cement check was then performed. The pericapsular tissues were injected with total 100 cc of combination of 20 cc of Exparel, 30 cc normal saline, 50 cc of quarter percent Marcaine with epinephrine. Patient did receive 1 g tranexamic acid. The tourniquet was then let down for final tourniquet time of 54 minutes. Hemostasis assured use electrocautery. The extensor mechanism then closed with combination 1 PDS suture #1 Vicryl suture in a [id number]-[id number] fashion. Extensor mechanism checked found to be intact and the subcutaneous tissues then closed with 2 Dexon suture in a buried interrupted fashion skin was closed skin travis. Leg was then cleaned and dried and sterile dressed with Xeroform, 4 fours, sterile cast padding, Joey bandage were applied. Patient then transferred to the recovery room in stable condition. Patient tolerated procedure well no complications. Morris Wilkes, my physician urgent care physician assistant, was present for the entire procedure. His assistance was essential and required for appropriate patient positioning, prepping and draping, surgical exposure, performing the technical details of the operation, placement the implants, closure of the wound, and placement of the sterile bandage. I attest to the content of the Intraoperative Record and any orders documented therein. Any exceptions are noted below.
[2023-04-08] MEDS ORDERED: HYDROmorphone INJ 0.5 MG/0.5 ML SYR IV PRN (10:10)
[2023-04-08] MEDS ORDERED: SENNA 8.6 MG TAB PO SCH ×2 (10:10→21:00)
[2023-04-08] MEDS ORDERED: ALUMINUM/MAGNESIUM SUSP 30 ML UDC PO PRN (10:10)
[2023-04-08] MEDS ORDERED: CARBOHYDRATES FOR HYPOGLYCEMIA PO PRN (10:10)
[2023-04-08] MEDS ORDERED: GLUCOSE 10 TAB/TUBE PO PRN (10:10)
[2023-04-08] MEDS ORDERED: NALOXONE HCL 0.4 MG/1 ML VIAL/CARP IV PRN (10:10)
[2023-04-08] MEDS ORDERED: SEMAGLUTIDE 7 MG PO SCH (10:10)
[2023-04-08] MEDS ORDERED: diphenhydrAMINE Capsule 25 MG CAP PO PRN (10:10)
[2023-04-08] MEDS ORDERED: bisacodyL 10 MG SUPP PR PRN (10:10)
[2023-04-08] MEDS ORDERED: GLUCAGON FOR INJ 1 MG VIAL SQ PRN (10:10)
[2023-04-08] MEDS ORDERED: NON-FORMULARY MEDICATION (Cpap Supplies misc) SCH (10:10)
[2023-04-08] MEDS ORDERED: MAGNESIUM HYDROXIDE SUSP 30 ML UDC PO PRN (10:10)
[2023-04-08] MEDS ORDERED: EMPAGLIFLOZIN 25 MG TAB PO SCH (10:10)
[2023-04-08] MEDS ORDERED: METOCLOPRAMIDE HCL INJ 5 MG/ML 2 ML VIAL IV PRN (10:10)
[2023-04-08] MEDS ORDERED: PHARMACY GLYCEMIC MGMT CONSULT PRN (10:10)
[2023-04-08] MEDS ORDERED: DEXTROSE 50% 50 ML SYRINGE IV PRN (10:10)
[2023-04-08] MEDS ORDERED: GLUCOSE 40% GEL 15 GM TUBE PO PRN (10:10)
[2023-04-08] MEDS ORDERED: oxyCODONE HCL IR 5 MG TAB (IMMEDIATE RELEASE) PO PRN (10:10)
--- NOTE | 2023-04-08 10:51 | XRay Report ---
XR knee LT 1 or 2V routine HISTORY: 57 years-old Female Surgical Post Op left knee arthroplasty COMPARISON: Knee radiographs 01/30/2023 TECHNIQUE: 2 views of the left knee FINDINGS: Total joint arthroplasty with patellar resurfacing. Anterior midline skin travis are present along w ith expected postoperative soft tissue swelling with deep tissue air. No acute fracture, dislocation or unexpected opaque foreign body. IMPRESSION: Total joint arthroplasty with expected postoperative changes. ACT 112: Negative or not required by law. The above report was generated using voice recognition software. It may contain grammatical, syntax o r spelling errors. Electronically signed by: Byron Gallegos M.D. 04/08/2023 10:49 AM
[2023-04-08] MEDS: SIMVASTATIN 20 MG TAB PO SCH (11:27)
[2023-04-08] MEDS: LEVOTHYROXINE SODIUM 175 MCG TABLET PO SCH (11:27)
[2023-04-08] MEDS: CYANOCOBALAMIN (B-12) 500 MCG TABLET PO SCH (11:27)
[2023-04-08] MEDS: MULTIVITAMIN TAB PO SCH (11:28)
[2023-04-08] MEDS: SPIRONOLACTONE 25 MG TAB PO SCH (11:28)
[2023-04-08] MEDS: LOSARTAN POTASSIUM 50 MG TAB PO SCH (11:28)
[2023-04-08] MEDS ORDERED: LANTUS PER UNIT CHARGE SC ONE (11:30)
[2023-04-08] MEDS: ASPIRIN 81 MG ECTAB PO SCH ×2 (11:30→21:03)
[2023-04-08] MEDS: DOCUSATE SODIUM 100 MG CAP PO SCH ×2 (11:30→21:02)
[2023-04-08] MEDS: ZINC SULFATE 220 MG CAPSULE PO SCH (11:34)
[2023-04-08] MEDS: KETOROLAC 30 MG/ML VIAL IV SCH ×3 (11:34→21:58)
[2023-04-08] MEDS: SODIUM CHLORIDE 0.9% 1000ML 1,000 ML IV SCH ×2 (11:35→21:00)
[2023-04-08] MEDS: INSULIN ASPART PER UNIT CHARGE SC SCH ×3 (12:52→21:04)
--- NOTE | 2023-04-08 12:54 | Pharmacy Report ---
Pharmacy Glycemic Short Note 2 - Date of Service April 08, 2023 - Glycemic Short BSG Results (Last 24 hours): 04/08/23 04/08/23 04/08/23 05:55 08:49 10:29 POC Glucose 237 H 214 H 221 H 04/08/23 12:07 POC Glucose 281 H OUTPATIENT ANTIDIABETIC REGIMEN: * Empagliflozin 25mg PO daily * Metformin 2gm PO daily * Semaglutide 14mg PO daily * HbA1c: 10% (03/20/23) ASSESSMENT: * Ms Morales is a 57yo diabetic F, POD 0 s/p L TKA this morning with Dr Mejia. * It does not appear as though patient received any interoperative steroids. * BSG elevated pre and post-op. Pt started on SQ basal/bolus insulin regimen on admission, using a moderate stress scale. * Will continue to follow and adjust regimen as indicated. PLAN FOR INPATIENT GLYCEMIC CONTROL: * Hold outpatient oral diabetes medications * Basal insulin * Lantus 25 units SQ x1 dose on admission * Lantus 0-20 units SQ at HS, based on BSG (see EMR for details) * Bolus insulin * NovoLog per scale ACHS or Q6hrs while NPO * Goal Range: Low 110 mg/dL - High 140 mg/dL * Correction Factor: 20 mg/dL/unit * Nutritional / Prandial insulin per carb ratio of 1 unit per 7 grams CHO consumed
--- NOTE | 2023-04-08 13:45 | Anesthesiology Progress Note ---
Date of Service April 08, 2023 Anesthesia Post Procedure Vital Signs Vital Signs: Temp Pulse Pulse Resp BP Pulse Ox O2 Del Method 04/08/23 13:00 97.9 F 70 16 105/66 97 Room Air 04/08/23 12:00 74 18 95/58 L 92 Room Air 04/08/23 10:58 71 18 99/63 L 91 Room Air 04/08/23 10:30 65 18 102/65 93 Room Air 04/08/23 10:00 98.1 F 63 16 109/65 98 Room Air 04/08/23 09:45 55 L 15 108/60 98 Room Air 04/08/23 09:35 97.9 F 58 L 12 102/60 95 Room Air 04/08/23 09:25 60 14 105/60 100 Room Air 04/08/23 09:15 64 10 L 103/59 L 99 Room Air 04/08/23 09:05 65 16 99/57 L 96 Room Air 04/08/23 08:55 65 17 106/55 L 98 Room Air 04/08/23 08:46 97.7 F 74 17 106/51 L 98 Room Air 04/08/23 05:39 98.8 F 76 21 137/80 95 Room Air Pain Intensity Left Knee: Pain Intensity: 1 Transfer of Care Handoff Completed per policy Notes Mental Status: alert / awake / arousable and participated in evaluation Patient Amnestic to Procedure: Yes Nausea / Vomiting: adequately controlled Pain: adequately controlled Airway Patency, RR, SpO2: stable & adequate BP & HR: stable & adequate Hydration State: stable & adequate Neuraxial Anesthesia: was administered and sensory block is resolving Anesthetic Complications: no major complications apparent and Pt Satisfied with anesthetic care
[2023-04-08] MEDS: ACETAMINOPHEN 500 MG TAB PO SCH ×2 (14:10→21:02)
[2023-04-08] MEDS ORDERED: TRANEXAMIC ACID / 0.7% NACL 1,000 MG/100 ML BAG IV SCH (14:45)
[2023-04-08] MEDS: Scopolamine CHECK PATCH PLACEMENT SCH ×2 (15:58→23:42)
[2023-04-08] MEDS: ceFAZolin 2000MG 2,000 MG/15 ML SYR IV SCH ×2 (16:16→21:56)
[2023-04-08] MEDS: ASCORBIC ACID 500 MG TAB PO SCH (18:12)
[2023-04-08] MEDS ORDERED: LANTUS PER UNIT CHARGE SC SCH (21:00)
[2023-04-09] MEDS: KETOROLAC 30 MG/ML VIAL IV SCH ×2 (06:27→11:09)
[2023-04-09] MEDS: LEVOTHYROXINE SODIUM 175 MCG TABLET PO SCH (06:30)
[2023-04-09 07:55] LABS: Hematocrit (blood only) 39.4 % (37.0-47.0); Hemoglobin 12.9 g/dl (12.0-16.0); Mean Corpuscular Hemoglobin 28.2 pg (25.0-34.0); Mean Corpuscular Hgb Conc 32.7 g/dL (32.0-36.0); Mean Corpuscular Volume 86.2 fL (80.0-100.0); Mean Platelet Volume 10.4 fL (9.4-12.4); Platelet Count 187 K/uL (130-400); RDW Coefficient of Variation 13.9 % (11.5-14.5); RDW Standard Deviation 42.9 fL (36.4-46.3); Red Blood Count 4.57 M/uL (4.20-5.40); White Blood Count 7.87 K/ul (4.8-10.8)
[2023-04-09 08:11] LABS: BUN Creatinine Ratio 21.8 (10-20); Calcium 8.5 mg/dl (8.6-10.3); Creatinine Clr Calc Pharmacy 93.4 ml/min; Est GFR (African American) 97.1 ml/min; Est GFR (Non-African American) 83.8 ml/min
[2023-04-09] MEDS: SPIRONOLACTONE 25 MG TAB PO SCH (08:15)
[2023-04-09] MEDS: ACETAMINOPHEN 500 MG TAB PO SCH ×2 (08:15→13:42)
[2023-04-09] MEDS: Scopolamine CHECK PATCH PLACEMENT SCH (08:15)
[2023-04-09] MEDS: CYANOCOBALAMIN (B-12) 500 MCG TABLET PO SCH (08:15)
[2023-04-09] MEDS: ZINC SULFATE 220 MG CAPSULE PO SCH (08:16)
[2023-04-09] MEDS: ASPIRIN 81 MG ECTAB PO SCH (08:16)
[2023-04-09] MEDS: MULTIVITAMIN TAB PO SCH (08:16)
[2023-04-09] MEDS: SIMVASTATIN 20 MG TAB PO SCH (08:16)
[2023-04-09] MEDS: LOSARTAN POTASSIUM 50 MG TAB PO SCH (08:16)
[2023-04-09] MEDS: INSULIN ASPART PER UNIT CHARGE SC SCH ×2 (08:17→12:45)
[2023-04-09] MEDS: DOCUSATE SODIUM 100 MG CAP PO SCH (08:17)
[2023-04-09] MEDS ORDERED: LANTUS PER UNIT CHARGE SC SCH (09:00)
[2023-04-09] MEDS: ASCORBIC ACID 500 MG TAB PO SCH (09:32)
--- NOTE | 2023-04-09 12:48 | Pharmacy Report ---
Pharmacy Glycemic Short Note 2 - Date of Service April 09, 2023 - Glycemic Short BSG Results (Last 24 hours): 04/08/23 04/08/23 04/09/23 17:00 20:26 06:15 Glucose POC Glucose 218 H 198 H 191 H 04/09/23 04/09/23 07:07 12:08 Glucose 219 H POC Glucose 248 H OUTPATIENT ANTIDIABETIC REGIMEN: * Empagliflozin 25mg PO daily * Metformin 2gm PO daily * Semaglutide 14mg PO daily * HbA1c: 10% (03/20/23) ASSESSMENT: 04/09/23 * BSGs have been maintained below 250mg/dL post-op, however, would prefer tighter control to promote wound healing and limit risk of infection. * Lantus dose increased this morning, as fasting BSG above goal. * Pre-lunch BSG was elevated today, so Novolog parameters have been adjusted to provide additional coverage. * Will again provide supplemental Lantus at HS, based on BSG. 04/08 * Ms Morales is a 57yo diabetic F, POD 0 s/p L TKA this morning with Dr Mejia. * It does not appear as though patient received any interoperative steroids. * BSG elevated pre and post-op. Pt started on SQ basal/bolus insulin regimen on admission, using a moderate stress scale. * Will continue to follow and adjust regimen as indicated. PLAN FOR INPATIENT GLYCEMIC CONTROL: * Hold outpatient oral diabetes medications * Basal insulin * Lantus 30 units SQ qAM * Lantus 0-20 units SQ at HS, based on BSG (see EMR for details) * Bolus insulin * NovoLog per scale ACHS or Q6hrs while NPO * Goal Range: Low 110 mg/dL - High 140 mg/dL * Correction Factor: 15 mg/dL/unit * Nutritional / Prandial insulin per carb ratio of 1 unit per 5 grams CHO consumed
--- NOTE | 2023-04-09 13:17 | Progress Notes ---
SUBJECTIVE: A 57-year-old white female postop day 1 from left knee replacement. She is doing well. Pain is controlled. She was hoping to go home. No chest pain or shortness of breath. Not feeling dizzy or lightheaded. OBJECTIVE: VITAL SIGNS: Temperature 36.8. Vital signs are stable. GENERAL: Shows a pleasant middle-aged female. She is sitting up in her bedside chair, looks comfort able. LUNGS: Clear to auscultation. HEART: Regular rate and rhythm. ABDOMEN: Soft, nontender, nondistended. EXTREMITIES: Grossly neurovascularly intact except as follows. Examination of the left leg reveals the dressing to be clean, dry and intact. Leg is well-aligned. She can dorsiflex and plantarflex her foot appropriately. She can do a straight leg raise. LABORATORY DATA: Hemoglobin 12.9. Hematocrit 39.4. Electrolytes are stable. ASSESSMENT: A 57-year-old white female postop day 1 from a left knee replacement, doing pretty well. Pain is controlled. She is neurologically intact. PLAN: 1. DVT prophylaxis includes thigh-high TEDs, SCDs, and aspirin twice a day for the next 6 weeks. 2. PT, OT, weightbear as tolerated. Left total knee protocol. 3. Pain control, doing okay with current pain regimen. 4. Disposition: Plan to discharge to home. She is going to go and live with her parents for a russell od of time where she will get home health. She will follow up with me in 2 weeks. Job ID: [id number]
== END 2023-04-09 14:23 | disposition home health service (06) ==
LOC: 3E 05:17 → ASU 05:17